=== PATIENT | male | born 1970 | race Caucasian/White ===

== ENCOUNTER 2023-12-01 20:02 | Emergency (ER) | payer OTHER, SELFPAY ==
--- NOTE | ~2023-12-01 | XR_ITS ---
Right Knee Technique: AP, lateral, and oblique views were obtained. Clinical History: Pain Findings: No fracture or dislocation is seen. Osseous alignment is anatomic. Joint spaces are preserv ed without degenerative or erosive change. Soft tissues are unremarkable. No joint effusion is seen. Impression: Unremarkable right knee radiographs. Reviewed, dictated and finalized at location . Impression: Unremarkable right knee radiographs.
--- NOTE | ~2023-12-01 | XR_ITS ---
Right foot Technique: AP, oblique, and lateral views were obtained. Clinical History: Pain Findings: No acute fracture or dislocation is seen. Osseous alignment is anatomic. There is advanced degenerative change of the first MTP joint. Soft tissues are unremarkable. 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 Reviewed, dictated and finalized at location . 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
[2023-12-01 20:08] VITALS: BP 148/99; PULSE 102; RESP 20; TEMP 36.9; O2SAT 98
--- NOTE | 2023-12-02 02:26 | ED.LOWEXIN ---
HPI - Extremity Injury (Lower) General Chief Complaint: Extremity Injury, Lower Stated Complaint: fall right foot pain Time Seen by Provider: 12/02/23 00:49 Source: patient Mode of arrival: EMS Limitations: no limitations History of Present Illness HPI Narrative: Patient is a 53 y/o male who presents to the ED via EMS with report of right foot pain. Patient reports his slide flip-flop became caught on the concrete causing him to slip and fall while walking. His states his R foot bent backwards underneath him. He has history of the bunion on his right foot and states this often causes him pain. He reports worsening pain throughout his dorsal distal foot. He does also complain of pain to his right foot. Sustained small abrasions in the fall. Denied any head injury or LOC. Has not taken anything for pain. Is able to ambulate, but has some pain with this. Related Data Allergies Allergy/AdvReac Type Severity Reaction Status Date / Time Penicillins Allergy Unknown Verified 12/01/23 20:07 Review of Systems Review of Systems: All systems reviewed & are unremarkable except as noted in HPI. All systems reviewed & are unremarkable except as noted in HPI and below Exam Narrative: GENERAL: Well appearing, well-nourished, non-toxic, in no acute distress. HEAD: Normocephalic, atraumatic. RESPIRATORY: Airway patent, respirations nonlabored. CARDIOVASCULAR: Regular rate and rhythm. Pedal pulses are intact and easily palpable. MUSCULOSKELETAL: Moves all extremities. No gross deformities. Mild swelling over dorsal distal foot in the area of 1st through 3rd MTP joints. Tenderness throughout this region, particularly over 1st MTP region. Sensation intact. Capillary refill intact. Small abrasions over R lower leg lateral [place]. No active bleeding. No deeper wounds or lacerations. Small amount of swelling to R anterior knee, tenderness along inferior joint spaces. No warmth or erythema. SKIN: Warm, dry, normal color. NEURO: A&O X3. Speech clear. PSYCHIATRIC: Appropriate mood and affect. Normal interaction. Course Vital Signs Vital signs: Vital Signs Temperature 98.5 F 12/01/23 20:08 Pulse Rate 102 H 12/01/23 20:08 Respiratory Rate 20 12/01/23 20:08 Blood Pressure 148/99 H 12/01/23 20:08 Pulse Oximetry 98 12/01/23 20:08 Oxygen Delivery Room Air 12/01/23 20:08 Temperature 98.5 F 12/01/23 20:08 Pulse Rate 64 12/02/23 03:00 Respiratory Rate 15 12/02/23 03:00 Blood Pressure 146/96 H 12/02/23 03:00 Pulse Oximetry 97 12/02/23 03:00 Oxygen Delivery Room Air 12/01/23 20:08 MDM - Extremity Injury (Lower) MDM Narrative Medical decision making narrative: Patient presented to ED status post ground level mechanical fall, injury to right foot and right knee. Neurovascularly intact. Vital signs are stable. XR of R foot interpreted by myself with possible avulsion fx to proximal medial base of 1st proximal phalange? Could be chronic fracture versus arthritic changes. Discussed this with patient. He denies ever knowingly injuring that toe previously. He is acutely tender in this region. Will treat as acute fracture with postop shoe, crutches, WBAT. X-ray of right knee interpreted by myself without evidence of acute osseous abnormality. Possible joint effusion. Patient provided with Noel bandage. Patient will be referred to Orthopedics/Podiatry for further evaluation. He was given return precautions. He agrees with plan. Discharged in stable condition. Medical Records Attestation: I reviewed the patient's medical records. Imaging Data Attestation: I personally reviewed and interpreted this imaging study as follows: My impression: XR R foot: Possible acute avulsion fx vs chronic fx vs arthritic changes to proximal medial aspect of 1st proximal phalange? XR R knee: No acute osseous abnormality. Possible joint effusion. Discharge Plan Discharge Clinical Impression: Fall from ground level
[2023-12-02] MEDS: ACETAMINOPHEN 500 MG TABLET 1000 MG PO (02:48)
[2023-12-02] MEDS: IBUPROFEN 600 MG TABLET PO (02:48)
[2023-12-02 03:00] VITALS: BP 146/96; PULSE 64; RESP 15; O2SAT 97
== END 2023-12-02 03:02 | disposition home or self-care (01) ==
PROVIDERS: Emergency Provider Physician Assistant
DX: S83.91XA Sprain of unspecified site of right knee, initial encounter (principal); S93.601A Unspecified sprain of right foot, initial encounter; S99.921A Unspecified injury of right foot, initial encounter; W19.XXXA Unspecified fall, initial encounter
CPT/HCPCS: 73564; 73630; 99284; A9270

== ENCOUNTER 2024-01-04 19:28 | Emergency (ER) | payer OTHER, SELFPAY ==
--- NOTE | ~2024-01-04 | XR_ITS ---
EXAMINATION: XR chest 1V DATE: 01/04/2024 20:00 INDICATION: Chest pain. TECHNIQUE: A single frontal view of the chest was obtained. COMPARISON: None. FINDINGS: There is a diffuse interstitial pattern, consistent with mild pulmonary edema. No pleural e ffusion or pneumothorax. The heart size is normal. IMPRESSION: 1. Mild pulmonary edema. Reviewed, dictated and finalized at location A. IMPRESSION: 1. Mild pulmonary edema.
--- NOTE | ~2024-01-04 | CT_ITS ---
EXAMINATION: CT abdomen pelvis w con DATE: 01/04/2024 21:46 INDICATION: Pancreatitis. TECHNIQUE: Computed tomography (CT) of the abdomen and pelvis was performed with 100 mL Omnipaque 350 intravenous contrast. Automated exposure control and iterative reconstruction technique were employe d. The dose-length product was 419.99 mGy-cm. COMPARISON: None. FINDINGS: The visualized portions of the lung bases demonstrate mild atelectasis. No pleural effusion . The heart size is normal. No pericardial effusion. The liver, gallbladder, spleen, pancreas, adrena l glands, and kidneys are normal. There are bilateral inguinal hernias containing fat. There is an an astomosis at the ileocolic junction. There are no pathologically enlarged lymph nodes. There is no fr ee intraperitoneal fluid. There is mild thoracic and lumbar spondylosis. IMPRESSION: 1. Normal pancreas. Reviewed, dictated and finalized at location A. IMPRESSION: 1. Normal pancreas.
[2024-01-04 19:29] VITALS: BP 125/82; PULSE 86; RESP 17; TEMP 36.4; O2SAT 97
--- NOTE | 2024-01-04 19:38 | ECG_ITS ---
Test Date: 2024-01-04 19:41:16 Measurements Intervals [place] Rate: 83 P: 49 NE: 135 QRS: 24 QRSD: 92 T: 105 QT: 378 QTc: 447 Interpretive Statements SINUS RHYTHM LOW QRS VOLTAGE IN PRECORDIAL LEADS [QRS DEFLECTION < 1.0 mV IN CHEST LEADS] NONSPECIFIC ST AND T-WAVE ABNORMALITY No previous ECG available for comparison Electronically Signed On 01-05-2024 09:39:33 CDT by Jens Lundy M.D.
[2024-01-04 19:39] VITALS: O2SAT 97
[2024-01-04 19:46] VITALS: BP 122/83; PULSE 87; RESP 18; O2SAT 96
[2024-01-04 19:47] VITALS: PULSE 88; RESP 17; O2SAT 96
[2024-01-04 19:55] LABS: Basophils Absolute Auto 0.1 K/mm3 (0.0-0.1); Basophils Percent Auto 0.9 % (0.2-1.2); Eosinophils Absolute Auto 0.3 K/mm3 (0-0.3); Eosinophils Percent Auto 3.2 % (0-4.4); Hematocrit 41.1 % (42.0-52.0); Hemoglobin 14.1 g/dL (14.0-18.0); Immature Granulocyte Absolute 0.03 K/mm3 (0.00-0.031); Immature Granulocyte Percent A 0.4 % (0-0.5); Lymphocytes Absolute Auto 2.58 K/mm3 (0.9-3.2); Lymphocytes Percent Auto 31.5 % (18.3-44.2); Mean Corpuscular HGB Conc 34.3 g/dl (32-36); Mean Corpuscular Hemoglobin 35.6 pg (26-34); Mean Corpuscular Volume 103.8 fl (80-100); Mean Platelet Volume 9.4 fl (7.4-10.4); Monocytes Absolute Auto 0.8 K/mm3 (0.1-0.6); Neutrophils Absolute Auto 4.4 K/mm3 (1.3-6.7); Platelet Count Result 229 k/mm3 (150-375); Red Blood Count 3.96 M/mm3 (4.6-6.20); Red Cell Distribution Width 12.4 % (11.5-14.5); White Blood Count 8.2 K/mm3 (4.5-10.0)
[2024-01-04 20:05] LABS: Alanine Aminotransferase 15 U/L (6-50); Albumin Level 4.2 g/dL (3.5-5.1); Alkaline Phosphatase 40 U/L (38-126); Anion Gap 9 mmol/L (4-12); Aspartate Amino Transferase 23 U/L (17-59); Bilirubin,Total 0.4 mg/dL (0.2-1.3); Blood Urea Nitrogen 11 mg/dL (9-20); Calcium 8.7 mg/dL (8.4-10.2); Carbon Dioxide 25 mmol/L (22-30); Chloride 102 mmol/L (98-107); Estimated CRCL calculation 88 ml/min; Estimated Glomerular Filt Rate > 60; Glucose 153 mg/dL (65-110); Lipase 1735 U/L (23-300); Potassium 3.7 mmol/L (3.4-5.0); Prothrombin Time 13.1 Seconds (11.1-14.7); Sodium 136 mmol/L (137-145)
[2024-01-04 20:06] LABS: Partial Thromboplastin Time 33.1 Seconds (22.3-36.8)
[2024-01-04 20:17] LABS: Troponin I < 0.012 ng/mL (0.000-0.034)
[2024-01-04 20:53] LABS: Ethanol 139 mg/dL (<10)
--- NOTE | 2024-01-04 21:15 | ED.CHESTPAIN ---
HPI - Chest Pain General Chief Complaint: Chest Pain Stated Complaint: CP and intoxication Time Seen by Provider: 01/04/24 19:59 History of Present Illness HPI narrative: Patient is a 53-year-old male who presents to the emergency department this evening complaining of chest pain. Patient admits that he has been drinking all day since 1:00 p.m. this afternoon and that he recently got out of a 28 day rehab. Patient is unable to tell me how much he had to drink today but states that he started to have some chest pain that is substernal which started this afternoon. When asked specify exactly what time the pain started, patient states sometime around 3:04 p.m. Patient tried wait it out but it did not improve so he decided to call EMS and was brought to our facility for further evaluation. Patient denies any history of cardiovascular disease. Upon my assessment, patient states the pain did improve while waiting in the emergency department. Denies any nausea, vomiting or abdominal pain. There are no additional modifying, alleviating, or precipitating factors at this time. Related Data Allergies Allergy/AdvReac Type Severity Reaction Status Date / Time Penicillins Allergy Unknown Verified 12/01/23 20:07 Review of Systems Review of Systems: All systems are reviewed and are negative unless stated otherwise in the HPI. Exam Narrative: General: Alert, awake, afebrile, in no acute distress. HEENT: PERRL, no rhinorrhea, no post nasal drip, oropharynx clear. Cardiovascular: Regular rate and rhythm, no murmurs, rubs or gallops, no peripheral edema. Respiratory: Clear to auscultation bilaterally, no tachypnea, no wheezing, no rhonchi, no rubs, no respiratory distress. Abdomen: Soft, nontender, nondistended, no rebound, no guarding, no peritoneal signs. Musculoskeletal: No joint swelling or deformity, normal muscle tone. Skin: No rashes or petechia, no signs of infection. Psychiatric: Alert and oriented, normal behavior and judgment for situation. Neurological: Alert and oriented to person, place, and time. Follows all commands. No focal deficits, speech is clear and fluent. Course Vital Signs Vital signs: Vital Signs Temperature 97.6 F 01/04/24 19:29 Pulse Rate 86 01/04/24 19:29 Respiratory Rate 17 01/04/24 19:29 Blood Pressure 125/82 01/04/24 19:29 Pulse Oximetry 97 01/04/24 19:29 Oxygen Delivery Room Air 01/04/24 19:29 Temperature 97.6 F 01/04/24 19:29 Pulse Rate 84 01/04/24 21:30 Respiratory Rate 14 01/04/24 21:30 Blood Pressure 132/82 01/04/24 21:30 Pulse Oximetry 94 01/04/24 21:30 Oxygen Delivery Room Air 01/04/24 19:39 MDM - Chest Pain MDM Narrative Medical decision making narrative: The patient was evaluated by myself in the emergency department. History is obtained from patient who is an independent historian and physical exam was performed. External medical records were reviewed at this time. IV was established and pertinent tests were ordered. Patient was administered 1 L IV fluid bolus with normal saline and 20 mg IV Pepcid. EKG was obtained which revealed sinus rhythm rate of 83 beats per minute, no evidence of acute ischemia. EKG was independently interpreted by me and is currently pending official cardiology read. Laboratory results obtained revealing no acute process. Two sets of troponins were obtained and both noted to be negative. Alcohol level 139. Patient's lipase was elevated at 1735. No previous lipase available for comparison per chart review. Patient denies any left upper quadrant abdominal pain. Imaging studies obtained included CT abdomen pelvis with IV contrast which was independently interpreted by me revealing no acute process, normal pancreas, which is pending final radiology interpretation. Differential diagnosis considerations include alcohol intoxication, peptic ulcer disease, pancreatitis, gastritis. Comorbidities impacting this vis
[2024-01-04] MEDS: LACTATED RINGERS 1,000 ML 999 ML IV CONT ×2 (21:28)
[2024-01-04 21:30] VITALS: BP 132/82; PULSE 84; RESP 14; O2SAT 94
[2024-01-04] MEDS: FAMOTIDINE 20 MG/2 ML VIAL IV PUSH (22:11)
--- NOTE | 2024-01-04 22:16 | ECG_ITS ---
Test Date: 2024-01-04 22:25:13 Measurements Intervals [place] Rate: 84 P: 58 CT: 143 QRS: 36 QRSD: 85 T: 24 QT: 370 QTc: 438 Interpretive Statements SINUS RHYTHM POSSIBLE SEPTAL MYOCARDIAL INFARCTION , PROBABLY OLD [40+ ms Q WAVE IN V1/V2] NONSPECIFIC ST AND T WAVE ABNORMALITY Compared to ECG 01/04/2024 19:41:16 NO SIGNIFICANT CHANGES Electronically Signed On 01-05-2024 09:47:38 CDT by Jens Lundy M.D.
[2024-01-04 22:43] LABS: Troponin I < 0.012 ng/mL (0.000-0.034)
[2024-01-04] MEDS: ACETAMINOPHEN 325 MG TABLET 650 MG PO (23:22)
[2024-01-04 23:31] VITALS: BP 119/77; PULSE 74; RESP 18; TEMP 36.6; O2SAT 98
== END 2024-01-04 23:30 | disposition home or self-care (01) ==
PROVIDERS: Emergency Medicine; Emergency Provider Emergency Medicine
DX: R07.9 Chest pain, unspecified (principal); F10.10 Alcohol abuse, uncomplicated; Y90.6 Blood alcohol level of 120-199 mg/100 ml
CPT/HCPCS: 36415; 71045; 74177; 80053; 82077; 83690; 84484; 85025; 85610; 85730; 93005; 96361; 96374; 99284; A9270; J7120; Q9967